=== PATIENT | female | born 1965 | race Caucasian/White ===

== ENCOUNTER 2024-06-17 21:14 | Emergency (ER) | payer OTHER, SELFPAY ==
[2024-06-17 21:17] VITALS: BP 135/86
--- NOTE | 2024-06-17 22:01 | ED.MUSCINJ ---
HPI-Injury
General
Chief Complaint: Musculo-Skeletal Complaint
Source: patient
Exam Limitations: none
Time Seen by Provider: 06/17/24 21:43
Nursing documentation reviewed up to this point in time: agreed with
History of Present Illness-Injury
Initial Injury comments:
59-year-old female presents with right foot pain. She has a history of a neurogenic degenerative disease and gets flares at times. 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 She has pain that shoots up from plantar aspect of right foot straight through to the top and sometimes pain is anterior
ankle and radiates down dorsal aspect to big toe. No pain at rest. Pain aggravated with certain movements of foot and weight bearing.
Past History
Past History
ED Past Medical History: Other ('Neurodegenerative disease')
ED Past Surgical History: Appendectomy, Bowel resection, , Gynecological and Orthopedic
Social History
Tobacco: Non-smoker
Alcohol: None
Personal: Single
Employment: Employed
Review of Systems
Review of Systems
Allergies reviewed?: Yes
All Other Systems: ROS reviewed and negative except as documented in HPI and ROS
Musculoskeletal: Reports other (Pain right foot)
Skin: Reports no symptoms
Neurological: Reports no symptoms
Phy Exam
Physical Exam
Physical Exam:
PHYSICAL EXAMINATION:
General: no apparent distress, not acutely ill
Neuro: alert and oriented.
Psychiatric: well kept. interactive and cooperative
Musculoskeletal: Moves with ease. Right foot is without swelling or discoloration. It is warm to touch. Brisk capillary refill. Tender to palpate about the dorsum of the foot. Ankle is nontender. Toes are nontender.
Skin: Warm, pink.
Injury Course
Orders/Labs/Results
Orders:
Orders
06/17/24 21:23
Foot, Right 3 View [CR Foot - Right Min 3 Views] Urgent
Comment:
Reason For Exam: pain, swelling
06/17/24 22:00
boot [Ortho Boot Right- Treatment] ONCE
Short or tall?: Short
Dexamethasone [Decadron] 10 mg PO NOW STA
MDM/Problems Addressed
Differential Diagnosis Includes:
sprain, occult fracture, flare of her 'neurogenic disease'
mechanical pain, neuropathic pain
MDM/Problems Addressed:
59-year-old female presents with right foot pain. She has a history of a neurogenic degenerative disease and gets flares at times. 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 She has pain that shoots up from plantar aspect of right foot straight through to the top and sometimes pain is anterior
ankle and radiates down dorsal aspect to big toe. No pain at rest. Pain aggravated with certain movements of foot and weight bearing.
X-ray right foot initially read by this examiner: No bony abnormality noted
This may be an overuse injury and or a flare of her neurogenic disease for which she has taken steroids at times.
She will be given 1 dose of Decadron here for inflammation
Ortho boot applied and she will follow-up with her orthopedic doctor in [facility]
Note given for off work at the camp until further instructed by her orthopedic
Chronic conditions affecting care: Neurological disorder ('neurodegenerative disease')
*Critical Care Note
Total Time (30-74mins, 75-104mins- exclusive of procedures): Not Applicable
ED Attending Note
-
Portions of this chart may have been created with voice recognition software.� Occasional wrong word or��sound alike� substitutions may have occurred due to the inherent limitations of voice recognition software.
Discharge Plan
Departure
Patient Disposition: Home (Routine Discharge)
Date of Disposition: 06/17/24
Time of Disposition: 22:05
Patient with high blood pressure during this ER visit?: No
Condition: Good
Discharge Problem:
Pain in right foot
Instructions: Metatarsalgia (DC), Using Cold for Pain, Foot sprain
Referrals:
Your, Orthopedic doctor in [facility] [Other] - Call in 1-3 days for appt
Stand Alone Forms: Return to Work
Activity Restrictions/Additional Instructions:
As we discussed, your x-ray shows no obvious fractures but there is always a chance that you could have an occult fracture that does not show up on x-ray
Wear the orthopedic boot when up and around until further instructed by your orthopedic doctor. You may need further imaging if not improving
You were given a dose of Decadron 10 mg, steroid here today to help with inflammation in case this is a flare from your neurodegenerative disease
Ibuprofen as needed for pain
Interventions
Interventions:
*Risk Screen - Suicide Last Done: 06/17/24 21:22
*General Assessment Last Done: 06/17/24 21:22
*Neglect/Abuse Screening Last Done: 06/17/24 21:22
*Nursing Disposition Last Done: 06/17/24 22:16
ED-Musculoskeletal Assessment Last Done: 06/17/24 22:15
Discharge Date and Time
Discharge Date/Time: 06/17/24 22:23
Print Language: GUATEMALAN
[2024-06-17] MEDS: DECADRON 10 MG PO (22:09)
== END 2024-06-17 22:23 | disposition home or self-care (01) ==
LOC: EMR 21:14
PROVIDERS: EMERGENCY PHYSICIAN Emergency Medicine
DX: M79.671 Pain in right foot (principal); Y93.89 Activity, other specified; Y92.89 Other specified places as the place of occurrence of the external cause; Y99.0 Civilian activity done for income or pay; G98.8 Other disorders of nervous system; Z98.0 Intestinal bypass and anastomosis status; Z88.8 Allergy status to other drugs, medicaments and biological substances
CPT/HCPCS: 99283; 29515; 73630